=== PATIENT | male | born 1965 | race Caucasian/White ===

== ENCOUNTER 2021-10-19 19:56 | Emergency (ER) | payer OTHER, SELFPAY ==
--- NOTE | ~2021-10-19 | CT_ITS ---
EXAMINATION: CT brain wo [facility] EXAM DATE: 10/19/2021 21:43 INDICATION: Fall, head injury. TECHNIQUE: Spiral CT of the head was performed without contrast. Axial, coronal and sagittal images were reviewed. The dose-length product (DLP) for this examination was 605.33 mGy-cm. The exposure w as tailored according to patient size, and iterative reconstruction (ASIR) was used as additional dos e reduction technique. There is no prior study for comparison. FINDINGS: There is no acute intraparenchymal hemorrhage. No evidence of intraparenchymal brain mass lesion. No evidence of acute infarction. There is no mass effect or midline shift. The ventricles are normal in size. There are no extra-axial collections. There are no acute calvarial fractures. T he orbits are unremarkable. Soft tissue is unremarkable. The visualized sinuses and mastoid air dajuan ls are well aerated. IMPRESSION: No acute intracranial findings. Reviewed, dictated and finalized at location .
--- NOTE | ~2021-10-19 | CT_ITS ---
EXAMINATION: CT facial & cervical spine wo EXAM DATE: 10/19/2021 21:43 INDICATION: fall, head injury, epistaxis TECHNIQUE: Spiral CT of the facial bones was acquired in the axial plane. Coronal reformatted images were also reviewed. Spiral CT of the cervical spine was performed without contrast. Axial images we re reviewed. Coronal and sagittal reformatted images were also reviewed. The dose-length product (DL P) for this examination was 354.23 mGy-cm. The exposure was tailored according to patient size, and iterative reconstruction (ASIR) was used as additional dose reduction technique. There is no prior s tudy for comparison. FINDINGS: FACIAL CT: Probable acute nondisplaced right nasal bone fracture anteriorly with some blood in the n ose. There is overlying soft tissue swelling. Septum is intact, no other acute facial fractures are i dentified. The orbits, globes and extraocular muscles are unremarkable. The visualized sinuses and mastoid air cells are well aerated. Small left maxillary sinus mucous retention cyst or polyp. Mason ateral zhang bullosa. Mild to moderate nasal septal deviation. CERVICAL CT: There is no evidence of acute cervical fracture. The odontoid process is intact. Pre-d ens space is normal. Prevertebral soft tissue is normal. There are no soft tissue abnormalities berta ntified. There is no disc space widening or traumatic vertebral body subluxation suspected. Vertebr al body and disc heights are well-maintained. A detailed level by level evaluation of spondylosis c an be added as addendum if requested. Mild apical emphysema IMPRESSION: 1. Acute nondisplaced right nasal bone fracture. 2. No acute cervical fracture. Reviewed, dictated and finalized at location G.
--- NOTE | 2021-10-19 20:09 | PC.NURSE ---
REPORTS AFTER HYPOGYLCEMIA AND FALL PT REPORTS HE ATE BUT DID NOT CHECK BS. REPORTS FEELS OK AT THIS TIME BUT BS CHECKED IN TRIAGE. BS [id number]
[2021-10-19 20:12] LABS: Glucose Point of Care 296 mg/dl (65-105)
--- NOTE | 2021-10-19 21:21 | ED.GENADULT ---
HPI - General Adult General Chief complaint: Fall Stated complaint: fall hitting face Time Seen by Provider: 10/19/21 20:47 Source: patient Mode of arrival: ambulatory Limitations: no limitations History of Present Illness HPI narrative: Patient is a 56-year-old male who presents the ED with report of a fall. Patient reports he is an insulin-dependent diabetic. He checked his blood glucose around 5 PM and noted that it was high. He gave himself additional insulin at that time. Approximately an hour later as he was getting ready to eat, he felt like his blood sugar was low at which point he felt weak and lightheaded. Patient then fell forward hitting his face and head against the ground. He does not believe he lost consciousness before or after the fall. He does remember the entire event and states that he just didn't eat fast enough after taking the additional insulin. He reported having epistaxis after the fall, which he was able to control at home. He also sustained a small superficial laceration below his lower lip on the right side. No through and through injury. No malocclusion or chipped teeth. Patient complains of pain to his nose, but otherwise denies any other complaints. No current dizziness, lightheadedness, vision changes, chest pain, shortness of breath, trouble breathing through nose, dysphagia, confusion, weakness, numbness, headache, nausea, vomiting, abdominal pain, back pain, neck pain. Related Data Allergies Allergy/AdvReac Type Severity Reaction Status Date / Time No Known Allergies Allergy Unknown Unverified 10/19/21 20:48 Review of Systems Review of Systems: CONSTITUTIONAL: Denies fever, chills, or sweats. EYES: Denies visual changes. ENT: Reports pain to nose and epistaxis. Denies trouble breathing through nose, dysphagia, malocclusion, chipped teeth. CARDIOVASCULAR: Denies chest pain. RESPIRATORY: Denies dyspnea. GASTROINTESTINAL: Denies abdominal pain, nausea, vomiting, or diarrhea. SKIN: Reports superficial laceration below lower lip. MUSCULOSKELETAL: Denies back pain, neck pain, or myalgia. NEUROLOGIC: Reports lightheadedness, weakness before fall. Denies headache, confusion, dizziness, numbness. All systems reviewed & are unremarkable except as noted in HPI and below PMFSH Past Medical History Medical History Insulin dependent diabetes mellitus Surgical History Surgical History No pertinent past surgical history Social History Social History Smoking status: Current every day smoker Exam Narrative: GENERAL: Well appearing, well-nourished, non-toxic, in no acute distress. HEAD: Normocephalic, atraumatic. No scalp tenderness to palpation. EYES: PERRL/EOMI, conjunctivae clear bilaterally. No nystagmus. No raccoon eyes. NOSE: Ecchymosis and erythema to entire nose. Dried blood around nares. No septal hematoma. Airway patent. EARS: TMs clear, with good light reflex. No erythema or bulging. No taylor sign. No hemotympanum. THROAT: Pharynx clear, no exudate. MMs moist. Small superficial laceration below lower lip on R side. No active bleeding. Bruising to inside of R lower lip, but no through and through injury. No malocclusion. NECK: Supple. No adenopathy, no masses. No midline cervical spinal tenderness to palpation. RESPIRATORY: Airway patent, respirations nonlabored. Clear to auscultation bilaterally, no rales, rhonchi, wheezing. CARDIOVASCULAR: Regular rate and rhythm without murmurs, rubs, or gallops. MUSCULOSKELETAL: Moves all extremities. Strength/ROM/sensation intact without gross deformities or TTP. No edema. SKIN: Warm, dry, normal color. No rashes. NEURO: A&O X3. Speech clear. Cranial nerves II-XII intact. Steady gait. No ataxic movements. PSYCHIATRIC: Appropriate mood and affect. Normal interaction. Procedures Laceration Laceration
[2021-10-19] MEDS: TETANUS,DIPHTHERIA,AC PERTUSSIS ADULT (0.5 ML) BOOSTRIX IM (22:52)
== END 2021-10-19 22:56 | disposition home or self-care (01) ==
PROVIDERS: Emergency Provider Emergency Medicine; PCP Internal Medicine
DX: S02.2XXA Fracture of nasal bones, initial encounter for closed fracture (principal); S01.511A Laceration without foreign body of lip, initial encounter; E11.649 Type 2 diabetes mellitus with hypoglycemia without coma; Z23 Encounter for immunization; Z79.4 Long term (current) use of insulin; W18.39XA Other fall on same level, initial encounter
CPT/HCPCS: 12011; 70450; 70486; 72125; 82948; 90471; 90715; 99284

== ENCOUNTER 2022-11-07 18:04 | Emergency (ER) | payer OTHER, SELFPAY ==
[2022-11-07 18:42] VITALS: BP 118/67; PULSE 81; RESP 18; TEMP 36.8; O2SAT 98
[2022-11-07 19:05] LABS: Basophils Absolute Auto 0.1 K/mm3 (0.0-0.1); Basophils Percent Auto 0.6 % (0.2-1.2); Eosinophils Absolute Auto 0.2 K/mm3 (0-0.3); Hematocrit 37.1 % (42.0-52.0); Hemoglobin 12.2 g/dL (14.0-18.0); Immature Granulocyte Absolute 0.03 K/mm3 (0.00-0.031); Immature Granulocyte Percent A 0.3 % (0-0.5); Lymphocytes Absolute Auto 1.65 K/mm3 (0.9-3.2); Lymphocytes Percent Auto 18.2 % (18.3-44.2); Mean Corpuscular HGB Conc 32.9 g/dl (32-36); Mean Corpuscular Hemoglobin 29.5 pg (26-34); Mean Corpuscular Volume 89.6 fl (80-100); Mean Platelet Volume 10.4 fl (7.4-10.4); Monocytes Percent Auto 10.9 % (2.6-8.5); Neutrophils Absolute Auto 6.2 K/mm3 (1.3-6.7); Platelet Count Result 203 k/mm3 (150-375); Red Blood Count 4.14 M/mm3 (4.6-6.20); Red Cell Distribution Width 15.6 % (11.5-14.5); White Blood Count 9.1 K/mm3 (4.5-10.0)
[2022-11-07 19:15] LABS: Alanine Aminotransferase 23 U/L (6-50); Albumin Level 3.8 g/dL (3.5-5.1); Alkaline Phosphatase 55 U/L (38-126); Anion Gap 4 mmol/L (8-16); Aspartate Amino Transferase 22 U/L (17-59); Bilirubin,Total 0.4 mg/dL (0.2-1.3); Blood Urea Nitrogen 10 mg/dL (9-20); Calcium 8.3 mg/dL (8.4-10.2); Carbon Dioxide 27 mmol/L (22-30); Chloride 104 mmol/L (98-107); Estimated Glomerular Filt Rate > 60; Glucose 274 mg/dL (65-110); INR 1.1; Potassium 4.3 mmol/L (3.4-5.0); Prothrombin Time 13.3 Seconds (11.1-14.7); Sodium 135 mmol/L (137-145)
--- NOTE | 2022-11-07 23:36 | ED.GENADULT ---
HPI - General Adult General Chief complaint: GI Bleed Stated complaint: gi bleed Time Seen by Provider: 11/07/22 23:20 History of Present Illness HPI narrative: Patient 57-year-old gentleman who presents the emergency department with chief complaint of rectal bleeding. Patient reports that since Saturday he has had irritation in his rectal area and also reports that whenever he is wiped after having a bowel movement there has been blood on the toilet paper. Patient denies blood streaked on the stool patient denies blood in the in the toilet bowl patient denies vomiting denies localizing abdominal pain reports that he did have some discomfort in the perineal area but no specific localizing pain. Patient reports he is not on any anticoagulant. Patient reports no trauma Related Data Allergies Allergy/AdvReac Type Severity Reaction Status Date / Time No Known Allergies Allergy Unknown Unverified 10/19/21 20:48 Review of Systems Review of Systems: A 10 system review of systems was completed on the patient and is negative except for what is stated in the HPI. Nursing and ancillary documentation was reviewed. [facility] Past Medical History Medical History Insulin dependent diabetes mellitus Surgical History Surgical History No pertinent past surgical history Social History Social History Smoking status: Current every day smoker Exam Narrative: GENERAL: Well-appearing, well-nourished, and in no acute distress. HEAD: Normocephalic, atraumatic. EYES: PERRLA and EOMI. ENT: Nares clear, no rhinorrhea or epistaxis. Mucous membranes moist. NECK: Supple. CHEST: Clear to auscultation. No respiratory distress. HEART: Regular rate and rhythm. No murmur heard. Normal peripheral pulses. ABDOMEN: Soft, nontender, nondistended, normal active bowel sounds. EXTREMITIES: Normal range of motion. No edema. : There is no scrotal tenderness no epididymal tenderness on exam. No appreciable hernia on exam. Rectum has small hemorrhoid present no active bleeding stool is brown and guaiac negative SKIN: Warm, dry, no rash. NEURO: No focal deficits. Alert and oriented x3. PSYCH: Normal mood and affect. Course Vital Signs Vital signs: Vital Signs Temperature 36.8 C 11/07/22 18:42 Pulse Rate 81 11/07/22 18:42 Respiratory Rate 18 11/07/22 18:42 Blood Pressure 118/67 11/07/22 18:42 Pulse Oximetry 98 11/07/22 18:42 Oxygen Delivery Room Air 11/07/22 18:42 Temperature 36.8 C 11/07/22 18:42 Pulse Rate 81 11/07/22 18:42 Respiratory Rate 18 11/07/22 18:42 Blood Pressure 118/67 11/07/22 18:42 Pulse Oximetry 98 11/07/22 18:42 Oxygen Delivery Room Air 11/07/22 18:42 Medical Decision Making MDM Narrative Medical decision making narrative: Differential diagnosis includes hernia, GI bleed, hemorrhoidal bleed, anal fissure, diverticulitis, On exam the patient's abdominal exam is nonfocal and nontender. There is no evidence of a hernia on physical exam and no scrotal tenderness. Rectal exam showed no evidence of guaiac positive stool and no gross blood. Laboratory studies were obtained which showed a hemoglobin of 12.2 electrolytes showed just a blood sugar of 274 the patient does have history of insulin-dependent diabetes. Currently the patient is nontender and not requiring helical imaging The patient is not significantly anemic or showing signs of significant change from his previous hemoglobin in 2019. The patient will be started on a hemorrhoidal suppository and will be discharged to follow-up with his primary care provider Vital Signs Vital Signs: Vital Signs Temperature 36.8 C 11/07/22 18:42 Pulse Rate 81 11/07/22 18:42 Respiratory Rate 18 11/07/22 18:42 Blood Pressure 118/67 11/07/22 18:42 Pu
[2022-11-08 00:09] VITALS: BP 122/69; PULSE 69; RESP 18; TEMP 36.6; O2SAT 99
== END 2022-11-08 00:10 | disposition home or self-care (01) ==
PROVIDERS: General Practice; Emergency Provider Emergency Medicine; PCP Internal Medicine
DX: K64.9 Unspecified hemorrhoids (principal); E11.9 Type 2 diabetes mellitus without complications; F17.200 Nicotine dependence, unspecified, uncomplicated
CPT/HCPCS: 36415; 80053; 85025; 85610; 85730; 86850; 86900; 86901; 99283

== ENCOUNTER 2023-01-30 22:45 | Emergency (ER) | payer OTHER, SELFPAY ==
--- NOTE | ~2023-01-30 | XR_ITS ---
Clinical Indication: Chest pain PA and lateral views of the chest: Comparison: 03/19/2019 Findings: The lungs are clear, without evidence of focal consolidation or pleural effusion. Cardiome diastinal silhouette is within normal limits. Bones and soft tissues are unremarkable. Impression: Normal chest. Reviewed, dictated and finalized at location . Impression: Normal chest.
--- NOTE | 2023-01-30 22:49 | ECG_ITS ---
Measurements Intervals [place] Rate: 60 P: 71 [place]: 158 QRS: 56 QRSD: 101 T: 52 QT: 395 QTc: 395 Interpretive Statements SINUS RHYTHM NORMAL ECG COMPARED TO ECG 03/19/2019 11:00:36 SINUS RHYTHM NOW PRESENT Electronically Signed On 01-31-2023 6:48:[address] D[address]O.
[2023-01-30 23:05] VITALS: BP 151/68; PULSE 61; RESP 12; TEMP 36.6; O2SAT 98
[2023-01-30 23:32] LABS: Basophils Absolute Auto 0.1 K/mm3 (0.0-0.1); Basophils Percent Auto 0.9 % (0.2-1.2); Eosinophils Absolute Auto 0.2 K/mm3 (0-0.3); Eosinophils Percent Auto 2.7 % (0-4.4); Hematocrit 35.7 % (42.0-52.0); Immature Granulocyte Absolute 0.03 K/mm3 (0.00-0.031); Immature Granulocyte Percent A 0.5 % (0-0.5); Lymphocytes Absolute Auto 1.67 K/mm3 (0.9-3.2); Lymphocytes Percent Auto 29.8 % (18.3-44.2); Mean Corpuscular HGB Conc 33.6 g/dl (32-36); Mean Corpuscular Hemoglobin 29.3 pg (26-34); Mean Corpuscular Volume 87.3 fl (80-100); Mean Platelet Volume 10.4 fl (7.4-10.4); Monocytes Absolute Auto 0.7 K/mm3 (0.1-0.6); Monocytes Percent Auto 11.8 % (2.6-8.5); Neutrophils Absolute Auto 3.1 K/mm3 (1.3-6.7); Neutrophils Percent Auto 54.3 % (45.5-73.1); Platelet Count Result 169 k/mm3 (150-375); Red Blood Count 4.09 M/mm3 (4.6-6.20); Red Cell Distribution Width 15.5 % (11.5-14.5); White Blood Count 5.6 K/mm3 (4.5-10.0)
[2023-01-30 23:41] LABS: Alanine Aminotransferase 23 U/L (6-50); Albumin Level 3.4 g/dL (3.5-5.1); Alkaline Phosphatase 48 U/L (38-126); Anion Gap 4 mmol/L (8-16); Aspartate Amino Transferase 26 U/L (17-59); Bilirubin,Total 0.3 mg/dL (0.2-1.3); Blood Urea Nitrogen 14 mg/dL (9-20); Calcium 8.3 mg/dL (8.4-10.2); Carbon Dioxide 28 mmol/L (22-30); Chloride 104 mmol/L (98-107); Estimated CRCL calculation 73 ml/min; Estimated Glomerular Filt Rate > 60; Glucose 178 mg/dL (65-110); Lipase 42 U/L (23-300); Potassium 3.7 mmol/L (3.4-5.0); Sodium 136 mmol/L (137-145)
[2023-01-30 23:49] LABS: Prothrombin Time 13.9 Seconds (11.1-14.7)
[2023-01-30 23:50] LABS: Partial Thromboplastin Time 33.7 SECONDS (22.3-36.8)
[2023-01-30 23:53] LABS: Troponin I < 0.012 ng/mL (0.000-0.034)
--- NOTE | 2023-01-31 00:19 | ED.CHESTPAIN ---
HPI - Chest Pain General Chief Complaint: Chest Pain <Eufemia Sandoval PA-C - Last Filed: 01/31/23 02:54> Stated Complaint: chest pain <Eufemia Sandoval PA-C - Last Filed: 01/31/23 02:54> Time Seen by Provider: 01/30/23 23:20 <Eufemia Sandoval PA-C - Last Filed: 01/31/23 02:54> History of Present Illness HPI narrative: 58-year-old male with a history of insulin-dependent diabetes, hyperlipidemia, GERD reports for evaluation via EMS for intermittent chest pain x4 to 5 days. Patient states the pain is located in his epigastrium and substernal chest. States it occurs a couple of times a day and last 2 hours at a time. He does not recognize any aggravating or alleviating factors and cannot identify what he is doing at the time of onset of symptoms tonight at which he was laying down at the onset of symptoms. The pain does not radiate anywhere. He reports taking all of his medications as directed, states his diabetes is under control. He denies a cardiac history, history of VTE, recent surgeries or hospitalizations, lower extremity edema. Denies shortness of breath, fever, nausea or vomiting, melena or hematochezia, hemoptysis, cough or congestion, fever. States he lives with his sister who is currently out of town and became worried, therefore came to the ED. He does report anxiety when his chest pain occurs. He is currently not having chest pain. <Eufemia Sandoval PA-C - Last Filed: 01/31/23 02:54> Related Data Allergies/Adverse Reactions: Allergies Allergy/AdvReac Type Severity Reaction Status Date / Time No Known Allergies Allergy Unknown Unverified 10/19/21 20:48 <Eufemia Sandoval PA-C - Last Filed: 01/31/23 02:54> Review of Systems Review of Systems: CONSTITUTIONAL: Denies fever, chills EYES: Denies visual changes, redness, or discharge. ENT: Denies rhinorrhea, congestion, sore throat, or otalgia. CARDIOVASCULAR: See HPI RESPIRATORY: Denies cough or dyspnea. GASTROINTESTINAL: See HPI GENITOURINARY: Denies dysuria or hematuria. SKIN: Denies rash or itching. MUSCULOSKELETAL: Denies back pain, joint pain, or myalgia. NEUROLOGIC: Denies headache, numbness, dizziness, or weakness. PSYCHIATRIC: Denies anxiety or depression. <Eufemia Sandoval PA-C - Last Filed: 01/31/23 02:54> [facility] Past Medical History Medical History: Medical History Insulin dependent diabetes mellitus <Eufemia Sandoval PA-C - Last Filed: 01/31/23 02:54> Surgical History Surgical History: Surgical History No pertinent past surgical history <Eufemia Sandoval PA-C - Last Filed: 01/31/23 02:54> Social History Social History: Social History Smoking status: Current every day smoker <Eufemia Sandoval PA-C - Last Filed: 01/31/23 02:54> Exam Narrative: GENERAL: Well-appearing, in no acute distress. Patient resting comfortably in exam bed. He is pleasant and conversational. HEAD: Normocephalic EYES: PERRLA ENT: Nares clear. Mucous membranes moist. Oropharynx without tonsillar hypertrophy exudate or other lesions. NECK: Supple. CHEST: No respiratory distress. Clear to auscultation, no adventitious breath sounds. HEART: Regular rate and rhythm. No murmur heard. Normal peripheral pulses. ABDOMEN: Soft, nontender, normal active bowel sounds. Negative Turner sign. EXTREMITIES: Normal range of motion. No edema. SKIN: Warm, dry, no rash. NEURO: No focal deficits. Alert and oriented x3. PSYCH: Normal mood and affect. <Eufemia Sandoval PA-C - Last Filed: 01/31/23 02:54> [facility]/PA Physician Supervision This is a was performed by both a physician and an APC. I performed all aspects of the MDM as documented w/ the following additions: 58-year-old male presenting with epigastric and chest pain. c
[2023-01-31] MEDS: BELLADONNA ALK/PHENOB ELIX 10 ML, MAG HYDROX/ALUMINUM HYD/SIMETH 30 ML, LIDOCAINE HCL 2... PO (00:26)
[2023-01-31] MEDS: FAMOTIDINE 20 MG/2 ML VIAL IV PUSH (00:29)
[2023-01-31 02:34] LABS: Troponin I < 0.012 ng/mL (0.000-0.034)
[2023-01-31 04:33] VITALS: BP 118/61; PULSE 55; RESP 15; O2SAT 98
== END 2023-01-31 04:35 | disposition home or self-care (01) ==
PROVIDERS: Emergency Medicine; Emergency Provider Physician Assistant; PCP Internal Medicine
DX: R07.89 Other chest pain (principal); E11.9 Type 2 diabetes mellitus without complications; E78.5 Hyperlipidemia, unspecified; K21.9 Gastro-esophageal reflux disease without esophagitis; F17.200 Nicotine dependence, unspecified, uncomplicated
CPT/HCPCS: 36415; 71046; 80053; 83690; 84484; 85025; 85610; 85730; 93005; 96374; 99284; A9270

== ENCOUNTER 2024-09-12 16:52 | Emergency (ER) | payer OTHER, SELFPAY ==
--- NOTE | 2024-09-12 16:53 | ED_ITS ---
HPI - General Adult General Chief complaint: Unspecified Stated complaint: High B/P Time Seen by Provider: 09/12/24 17:01 Source: patient, RN notes reviewed and old records reviewed Mode of arrival: ambulatory Limitations: no limitations History of Present Illness HPI narrative: A 59-year-old male presents to the [facility] with concerns of to elevated blood pressure readings. Patient reports that his blood pressure readings at were 150-160 over 80-90 And patient states for the last week he has been feeling kind of off. States his blood pressure has been higher and lower than his normal. Reports that he h as had some cough and runny nose. Symptoms have improved today. Today in clinic blood pressure was 144/68, blood sugar was 93. No acute findings noted on exam. Onset (ago): week(s) (1) Related Data Home Medications ?Medication ?Instructions ?Recorded ?Confirmed ?Last Taken ?Type atorvastatin 10 mg tablet mg 09/12/24 Unknown History insulin glargine 100 unit/mL (3 unit subcut 09/12/24 Unknown History mL) subcutaneous pen (Lantus Solostar U-100 Insulin) insulin lispro 100 unit/mL subcut 09/12/24 Unknown History subcutaneous pen (Humalog KwikPen (U-100) Insulin) levothyroxine 100 mcg tablet mcg 09/12/24 Unknown History omeprazole 40 mg capsule,delayed mg 09/12/24 Unknown History release pen needle, diabetic 31 gauge x 09/12/24 09/12/24 Unknown History 10/11 (BD Ultra-Fine Mini Pen Needle) Allergies Allergy/AdvReac Type Severity Reaction Status Date / Time No Known Allergies Allergy Unknown Verified 09/12/24 16:53 Review of Systems Review of Systems: All systems reviewed & are unremarkable except as noted in HPI and below Constitutional: Constitutional: Reports as per HPI ENT: Reports system reviewed and no additional complaints, except as documented Cardiovascular: Cardiovascular: Reports no additional cardiovascular complaints, Denies chest pain and Denies dyspnea Respiratory: Respiratory: Reports no additional respiratory complaints, Denies chest congestion, Denies cough and Denies dyspnea Musculoskeletal: Musculoskeletal: Reports no additional musculoskeletal complaints Integumentary/Breasts: Skin/Breast: Reports system reviewed and no additional complaints, except as docu [facility] Past Medical History Medical History (Updated 09/12/24 @ 17:47 by Theresa Azar APRN) History of high cholesterol Insulin dependent diabetes mellitus Surgical History Surgical History No pertinent past surgical history Social History Social History Smoking status: Current every day smoker Comments At the time of my signature, I reviewed and agree with the nursing past medical, surgical, social, and family history. There is no relevant family history pertinent to the patient complaint. Exam Const: General: cooperative, healthy appearing, comfortable, no acute distress, well developed, alert and well nourished Nutritional Appearance: well nourished Orientation/consciousness: patient oriented x3 Limitations: no limitations HENMT: Head: normal to inspection Ears: hearing grossly normal bilaterally, external ears normal, TM's normal bilaterally, EAC's normal, mastoids normal and no periauricular adenopathy Mouth: Yes Normal oral and palatal mucosa present, Yes lip normal, Yes tongue normal and Yes moist mucous membranes Throat: posterior oropharynx normal, uvula midline and no uvular edema Eyes: General: appearance normal, both eyes and all related structures Alignment and Position: alignment normal Neck: Neck: normal visual inspection, full ROM, no lymphadenopathy and no meningeal signs Chest: Chest palpation & inspection: normal inspection of the chest Resp: Effort & Inspection: normal respiratory effort and able to speak in complete sentences Auscultation: clear to auscultation bilaterally, no crackles, no rales, no rhonchi, no wheezes and diminished lung sounds Cardio: Rate: regular rate Skin: General skin exam: normal color and no rashes or lesions noted Neuro: General: patient oriented x3, gait normal, moves all extremities and no meningeal signs Cognition (Neuro): normal cognition Speech: normal speech Gait exam (Neuro): Normal gait present Extrem: General: normal to inspection, full ROM, capillary refill normal and normal gait Psych: Appearance: grossly normal and well kempt Mental Status: mental status grossly normal Speech and movement: Normal speech and movement present and Clear speech present Affect: normal affect Attitude: cooperative Course Course Level of Care: Express Care Visit Vital Signs Vital signs: Vital Signs Temperature 97.9 F 09/12/24 17:01 Pulse Rate 72 09/12/24 17:01 Respiratory Rate 16 09/12/24 17:01 Blood Pressure 144/68 H 09/12/24 17:01 Pulse Oximetry 99 09/12/24 17:01 Oxygen Delivery Room Air 09/12/24 17:01 Temperature 97.9 F 09/12/24 17:01 Pulse Rate 72 09/12/24 17:01 Respiratory Rate 16 09/12/24 17:01 Blood Pressure 144/68 H 09/12/24 17:01 Pulse Oximetry 99 09/12/24 17:01 Oxygen Delivery Room Air 09/12/24 17:01 Reviewed Medical Decision Making MDM Narrative Medical decision making narrative: Patient sitting comfortably in exam room. Nontoxic, vitals stable. Patient in no acute distress Patient presents for concerns for to elevated home blood pressure readings. Blood pressure is 144/68. Patient blood sugar is 93. Patient reports having a primary care appointment on 09/21/24 No acute findings noted on exam Discharge instructions reviewed with patient, as well as provided in writing per nursing staff. The instructions also include specific and strict return/GO TO THE ER as well as f/u information. All questions have been answered, and the patient deny any further questions with discharge and discharge plan. Some parts of this dictation were generated by voice recognition software and may contain typographical and/or grammatical inaccuracies. Differential Diagnosis Differential Diagnosis: Pressure issue, blood sugar issue, viral infection wellness exam Medical Records Medical records reviewed: Yes I reviewed the external patient's medical records. Vital Signs Vital Signs: Vital Signs Temperature 97.9 F 09/12/24 17:01 Pulse Rate 72 09/12/24 17:01 Respiratory Rate 16 09/12/24 17:01 Blood Pressure 144/68 H 09/12/24 17:01 Pulse Oximetry 99 09/12/24 17:01 Oxygen Delivery Room Air 09/12/24 17:01 Temperature 97.9 F 09/12/24 17:01 Pulse Rate 72 09/12/24 17:01 Respiratory Rate 16 09/12/24 17:01 Blood Pressure 144/68 H 09/12/24 17:01 Pulse Oximetry 99 09/12/24 17:01 Oxygen Delivery Room Air 09/12/24 17:01 Reviewed Lab Data Lab results reviewed: Yes I reviewed the patient's lab results. Labs: Lab Results 09/12/24 Range/Units 17:10 POC Capillary Glucose 93 (65-105) mg/dl Reviewed Critical Care Time Critical Care Time Critical Care Time: No Discharge Plan Discharge Clinical Impression: History of diabetes mellitus, Blood pressure check Patient Disposition: Home, Self-Care Condition: Stable Instructions: Antibiotic Form, Heart Healthy Diet (DC), How to Take a Blood Pressure Reading (ED), Low-Sodium Diet (ED) Additional Instructions: Follow-up with your primary care provider as already scheduled Patient Language: Citizen Of [place] Prescriptions: No Action atorvastatin 10 mg tablet omeprazole 40 mg capsule,delayed release(DR/EC) levothyroxine 100 mcg tablet insulin lispro [Humalog KwikPen Insulin] 100 unit/mL insulin pen SUBCUT (DME) pen needle, diabetic [BD Ultra-Fine Mini Pen Needle] 31 gauge x 3/16 needle MISCELLANEOUS insulin glargine [Lantus Solostar U-100 Insulin] 100 unit/mL (3 mL) insulin pen SUBCUT hydrocortisone acetate 25 mg suppository 25 mg RECTAL BID Qty: 24 0RF Follow-up/Referrals: Vipul,Chavo Rob MD [Primary Care Provider] - 1 Week ([facility] ) Stand Alone Forms: Work/School Release IP Time of Disposition: 17:16
[2024-09-12 17:01] VITALS: BP 144/68; PULSE 72; RESP 16; TEMP 36.6; O2SAT 99
[2024-09-12 17:13] LABS: Glucose Point of Care 93 mg/dl (65-105)
== END 2024-09-12 17:20 | disposition home or self-care (01) ==
PROVIDERS: Emergency Provider Nurse Practitioner; PCP Internal Medicine
DX: Z01.31 Encounter for examination of blood pressure with abnormal findings (principal); E11.9 Type 2 diabetes mellitus without complications; Z79.84 Long term (current) use of oral hypoglycemic drugs; E78.00 Pure hypercholesterolemia, unspecified; F17.200 Nicotine dependence, unspecified, uncomplicated
CPT/HCPCS: 82948; 99212; G0463